=== PATIENT | male | born 1935 | race Caucasian/White ===

== ENCOUNTER 2021-10-23 08:26 | Day surgery (SDC) | payer MEDICARE, OTHER ==
[2021-10-16 11:03] LABS: BASOPHILS % (AUTO) 0.6 % (0-1); EOSINOPHILS # (AUTO) 0.1 X10'3 (0-0.9); EOSINOPHILS % (AUTO) 0.9 % (0-6); HEMATOCRIT 49.9 % (42.0-52.0); HEMOGLOBIN 16.4 g/dl (14.0-17.9); LYMPHOCYTES # (AUTO) 1.3 X10'3 (1.1-4.8); MEAN CORPUSCULAR HEMOGLOBIN 30.4 PG (27.0-31.0); MEAN CORPUSCULAR HGB CONC 32.9 g/dL (33.0-36.5); MEAN CORPUSCULAR VOLUME 92.3 FL (78-98); MEAN PLATELET VOLUME 9.3 FL (7.4-10.4); MONOCYTES # (AUTO) 0.8 X10'3 (0-0.9); MONOCYTES % (AUTO) 10.6 % (2-12); NEUTROPHILS # (AUTO) 5.4 X10'3 (1.8-7.7); NEUTROPHILS % (AUTO) 70.9 % (42-75); PLATELET COUNT 206 X10'3 (140-440); RED CELL DISTRIBUTION WIDTH 14.5 % (11.5-14.5); WHITE BLOOD COUNT 7.7 X10'3 (4.5-11.0)
[2021-10-16 11:08] LABS: APTT 28 SECONDS (22-32)
[2021-10-16 11:54] LABS: ALANINE AMINOTRANSFERASE 26 U/L (12-78); ALBUMIN 3.5 G/DL (3.4-5.0); ALKALINE PHOSPHATASE 98 IU/L (46-116); ANION GAP 8 (8-16); ASPARTATE AMINO TRANSFERASE 23 U/L (10-37); BILIRUBIN,TOTAL 0.9 MG/DL (0.1-1.0); BLOOD UREA NITROGEN 13 MG/DL (7-18); BUN/CREATININE RATIO 10.8 (5.4-32.0); CALCIUM 8.9 MG/DL (8.5-10.1); CHLORIDE 106 MMOL/L (99-107); GLUCOSE 103 MG/DL (70-104); POTASSIUM 4.4 MMOL/L (3.5-5.1); SODIUM 141 MMOL/L (135-145); TOTAL CARBON DIOXIDE 27.5 MMOL/L (24-32); eGFR 58 ML/MIN
[~2021-10-23] VITALS: Ht 177.8 cm; Wt 68.2 kg
[2021-10-23] VITALS (13 sets, daily range): BP systolic 120–159; BP diastolic 58–97
[2021-10-23] MEDS ORDERED: LORazepam 0.5 MG tablet PO PRN (08:45)
[2021-10-23] MEDS ORDERED: diphenhydrAMINE 25mg capsule PO PRN (08:45)
[2021-10-23] MEDS ORDERED: nitroGLYCERIN 0.4mg SUBLingual tab SL PRN ×2 (08:45→11:30)
[2021-10-23] MEDS ORDERED: normal saline 1,000 ML IV SCH (08:45)
[2021-10-23] MEDS ORDERED: methylPREDNISolone sod succ 125mg/2ml vial IV ONE (08:45)
[2021-10-23] MEDS ORDERED: DILT120T3 PO (09:23)
[2021-10-23] MEDS ORDERED: ASCO100T12 PO (09:23)
[2021-10-23] MEDS ORDERED: ALBU8.5H17 INH (09:23)
[2021-10-23] MEDS ORDERED: ATOR10TA70 PO (09:23)
[2021-10-23] MEDS ORDERED: fentaNYL/PF 50MCG/1 ML 2ML syringe ONE (09:33)
[2021-10-23] MEDS ORDERED: iohexol 350MG/ML 100ml bottle IV ONE (09:33)
[2021-10-23] MEDS ORDERED: iohexol 350 MG/ML 50ML vial IV ONE ×2 (09:33→10:22)
[2021-10-23] MEDS ORDERED: midazolam 1 mg/ML 2ml injection ONE ×2 (09:33→10:30)
[2021-10-23] MEDS ORDERED: LIDOcaine 1% (10mg/ml)w/preservative injection 20ml MDV ONE (09:33)
[2021-10-23] MEDS ORDERED: HYDROcodone/acetaminophen 5mg/325mg tablet PO PRN (11:30)
[2021-10-23] MEDS ORDERED: ondansetron/PF 4mg/2ml inj IV PRN (11:30)
[2021-10-23] MEDS ORDERED: normal saline 1000ml 1,000 ML IV SCH (11:30)
[2021-10-23] MEDS ORDERED: OXAZEpam 15mg capsule PO PRN (11:30)
[2021-10-23] MEDS ORDERED: HYDROcodone/acetaminophen 10/325mg tab PO PRN (11:30)
[2021-10-23] MEDS ORDERED: proCHLORperazine 10 MG/2 ml inj IV PRN (11:35)
[2021-10-23] MEDS ORDERED: ACETYLCYSTEINE 200 MG/1 ML 4 ML ORAL SOLUTION PO SCH (20:00)
== END 2021-10-23 17:55 | disposition home or self-care (01) ==
LOC: SSTAY O 08:26
PROVIDERS: ATTEND Internal Medicine Cardiovascular Disease
DX: R94.39 Abnormal result of other cardiovascular function study (principal); I25.10 Atherosclerotic heart disease of native coronary artery without angina pectoris; J44.9 Chronic obstructive pulmonary disease, unspecified; I10 Essential (primary) hypertension; E78.5 Hyperlipidemia, unspecified; Z79.01 Long term (current) use of anticoagulants; Z88.8 Allergy status to other drugs, medicaments and biological substances; Z88.0 Allergy status to penicillin; Z87.891 Personal history of nicotine dependence; Z79.899 Other long term (current) drug therapy
CPT/HCPCS: 36415; 71046; 80053; 85025; 85610; 85730; 93005; 93458; 99152; 99153; C1760; C1769; J1644; J2250; J2930; J3010; J3490; J7030; Q0163; Q9967; A4620; A6258

== ENCOUNTER → 2022-09-23 | Outpatient (CLI) | payer MEDICARE, OTHER ==
[~2022-09-23] MED LIST: ALBU8.5H17 INH; ASCO100T12 PO; ATOR10TA70 PO; DILT120T3 PO
[2022-09-23 10:49] LABS: APTT 27 SECONDS (22-32)
[2022-09-23 11:00] LABS: ALANINE AMINOTRANSFERASE 22 U/L (12-78); ALBUMIN 3.9 G/DL (3.4-5.0); ALKALINE PHOSPHATASE 113 IU/L (46-116); ANION GAP 7 (8-16); ASPARTATE AMINO TRANSFERASE 25 U/L (10-37); BLOOD UREA NITROGEN 27 MG/DL (7-18); CALCIUM 9.2 MG/DL (8.5-10.1); CHLORIDE 102 MMOL/L (99-107); CREATININE 1.59 MG/DL (0.60-1.10); GLUCOSE 107 MG/DL (70-104); SODIUM 139 MMOL/L (135-145); TOTAL CARBON DIOXIDE 30.2 MMOL/L (24-32); TOTAL PROTEIN 7.7 G/DL (6.4-8.2); eGFR 42 ML/MIN
[2022-09-23 11:09] LABS: BASOPHILS % (AUTO) 0.8 % (0-1); EOSINOPHILS # (AUTO) 0.2 X10'3 (0-0.9); EOSINOPHILS % (AUTO) 2.3 % (0-6); HEMATOCRIT 52.1 % (42.0-52.0); HEMOGLOBIN 16.9 g/dl (14.0-17.9); LYMPHOCYTES % (AUTO) 15.6 % (21-51); MEAN CORPUSCULAR HGB CONC 32.4 g/dL (33.0-36.5); MEAN CORPUSCULAR VOLUME 92.5 FL (78-98); MONOCYTES # (AUTO) 0.7 X10'3 (0-0.9); MONOCYTES % (AUTO) 11.1 % (2-12); NEUTROPHILS # (AUTO) 4.6 X10'3 (1.8-7.7); NEUTROPHILS % (AUTO) 70.2 % (42-75); PLATELET COUNT 188 X10'3 (140-440); RED BLOOD COUNT 5.63 X10'6 (4.70-6.10); RED CELL DISTRIBUTION WIDTH 14.2 % (11.5-14.5); WHITE BLOOD COUNT 6.6 X10'3 (4.5-11.0)
== END | disposition home or self-care (01) ==
LOC: LAB 09:54 → EDSTATUS 10-01 14:00
PROVIDERS: ATTEND Internal Medicine Cardiovascular Disease
DX: J98.4 Other disorders of lung (principal); I25.10 Atherosclerotic heart disease of native coronary artery without angina pectoris; R07.9 Chest pain, unspecified; R06.02 Shortness of breath; M47.814 Spondylosis without myelopathy or radiculopathy, thoracic region
CPT/HCPCS: 36415; 71046; 80053; 85025; 85610; 85730

== ENCOUNTER 2023-07-20 10:24 | Outpatient (CLI) | payer MEDICARE, OTHER | END 2023-07-20 23:59 | disposition home or self-care (01) | LOC: VAS 10:24 | PROVIDERS: ATTEND Surgery | DX: I70.0 Atherosclerosis of aorta (principal); I71.40 Abdominal aortic aneurysm, without rupture, unspecified; I70.8 Atherosclerosis of other arteries | CPT/HCPCS: 93978 ==

== ENCOUNTER 2024-02-29 08:19 | Outpatient (CLI) | payer MEDICARE, OTHER | END 2024-02-29 23:59 | disposition home or self-care (01) | LOC: VAS 08:19 | PROVIDERS: ATTEND Surgery | DX: I71.40 Abdominal aortic aneurysm, without rupture, unspecified (principal) | CPT/HCPCS: 93978 ==